=== PATIENT | male | born 1945 ===

== ENCOUNTER 2017-08-10 05:40 | Day surgery (SDC) | payer OTHER ==
[~2017-08-10 05:40] MED LIST: INTESTINEX680 MG PO; NORVASC5 MG PO; OXYC1TAB9 PO; PROTONIX40 MG PO
== END 2017-08-10 09:10 | disposition home or self-care (01) ==
LOC: AMB-ENDOS 05:40 → CIR.AMB 12:15
DX: K57.30 Diverticulosis of large intestine without perforation or abscess without bleeding (principal); Z85.048 Personal history of other malignant neoplasm of rectum, rectosigmoid junction, and anus